=== PATIENT | female | born 1995 | race Caucasian/White ===

== ENCOUNTER 2025-03-16 12:24 | Outpatient (AMB) | payer OTHER, SELFPAY ==
--- NOTE | 2025-03-16 12:37 | MHC.PC.OV ---
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 History of Present Illness The patient is a 29-year-old female presenting with migraines and heart palpitations. She has a significant history of migraines, primarily occurring around her menstrual cycle, lasting about four to five days, and localized to the occipital region. She denies any associated blurred vision, nausea, or vomiting. She was previously advised to undergo an MRI and consult a neurologist but was unable to follow through due to relocating to a different state. The patient also reports experiencing heart palpitations, which have been present for some time and tend to occur more frequently during periods of stress. She is aware of the need to seek emergency care if symptoms worsen significantly. Additionally, the patient has a history of dyslipidemia and reports intermittent lower extrem edema, although no edema was observed during the current examination. Social History Health Maintenance Review of Systems - Neurological: Reports migraines localized to the occipital region, denies blurred vision, nausea, or vomiting. - Cardiovascular: Reports heart palpitations, denies chest pain or syncope. - Musculoskeletal: Reports intermittent sacral edema, denies current edema. Physical Exam General: Cooperative, healthy appearing, comfortable, no acute distress and well developed Orientation: Patient oriented x3 Limitations: No limitations Head: Normal to inspection Ears: Hearing grossly normal bilaterally Nose: Normal external nose present Face and sinus: Normal facial exam Eyes: Appearance normal, both eyes and all related structures Neck: Normal visual inspection and Yes full ROM Respiratory: Normal respiratory effort and able to speak in complete sentences. Clear to auscultation bilaterally Cardiovascular: Regular rate and rhythm. Normal S1 and S2 GI: Normal to inspection. Soft to palpation and nontender Skin: No rashes or lesions noted Neuro: CN2 through 12 intact, negative arm pull test, fingertip to thumb test was neg, heel to guerrero was neg negative Romberg Extremities: Normal to inspection Results Plan Patient was informed and verbally consented to the use of an ambient scribe for clinic note documentation during this visit. 1. Migraine The patient will be referred to a neurologist for further evaluation and management of her migraines. An MRI of the brain will be ordered to rule out any underlying structural abnormalities. Magnesium supplementation at night and vitamin B2 in the morning have been recommended as part of her management plan. 2. Heart Palpitations An EKG and Holter monitor will be conducted to assess the heart palpitations. The patient is advised to seek emergency care if symptoms worsen significantly. 3. Dyslipidemia Laboratory tests including lipid profile, thyroid function tests, CBC, urinalysis, and CMP will be conducted to evaluate her dyslipidemia. Discussion Notes I discussed with the patient the plan to refer her to a neurologist for her migraines and the need for an MRI to rule out any structural issues. We also talked about starting magnesium and vitamin B2 supplementation. For her heart palpitations, I explained the importance of an EKG and Holter monitor, and advised her to seek emergency care if symptoms worsen. We will conduct a comprehensive lab workup to assess her dyslipidemia. Patient Instructions - Take magnesium at night and vitamin D2 in the morning as directed. - Follow up with the neurologist as referred. - Complete the MRI as scheduled. - Undergo EKG and Holter monitor testing as planned. - Seek emergency care if heart palpitations worsen. - Complete lab tests for dyslipidemia evaluation. [facility] Social History Housing: House Patient Tobacco Use Status: Never used Tobacco e-Cigarette/Vaping Use: Never Used service: No Current occupational status: employed Questionnaire PHQ-9 Over the last 2 weeks, how often have you been bothered by any of the following problems? 1. Little interest or pleasure in doing things: not at all 2. Feeling down, depressed, or hopeless: not at all 3. Trouble falling or staying asleep, or sleeping too much: several days 4. Feeling tired or having little energy: several days 5. Poor appetite or overeating: not at all 6. Feeling bad about yourself - or that you are a failure or have let yourself or your family down: not at all 7. Trouble concentrating on things, such as reading the newspaper or watching television: not at all 8. Moving or speaking so slowly that other people could have noticed. Or the opposite - being so fidgety or restless that you have been moving around a lot more than usual: not at all 9. Thoughts that you would be better off or of hurting yourself in some way: not at all Total score: 2 Depression Screening Interpretation: Negative Depression Screening Done: Yes 30856 - PHQ-9 Billing: Yes Source: Developed by Drs. Harsh Harrington, Nery Felton, Dwight Colunga and colleagues, with an educational denise from [employer]. Thrive Questionnaire Date Thrive assessed: 03/16/25 I am a: Patient What is your living situation today?: I have a steady place to live Within the past 12 months, did the food you bought not last and you didn't have the money to get more?: Never true Within the past 12 months, did you worry whether your food would run out before you got money to buy more?: Often true Do you have trouble paying for medicines?: No Do you have trouble getting transportation to medical appointments?: No Do you have trouble paying your heating and electricity bill?: No Do you have trouble taking care of your child, family member or friend?: No Do you have trouble with day-to-day activities such as bathing, preparing meals, shopping, managing finances, etc.?: No Are you currently unemployed and looking for a job?: No Are you interested in more education?: No Please select the resources that you would like help with: None Currently or been in a relationship where the following occur: No concerns reported THRIVE Score: 1 AUDIT C Alcohol Use Questionnaire (AUDIT-C) 1. How often do you have a drink containing alcohol?: Never 3. How often do you have six or more drinks on one occasion?: Never Total Score: 0 Score Reviewed/Action Taken: Yes RAY-7 AMB Questionnaire RAY-7 Date RYA - 7 assessed: 03/16/25 Feeling nervous, anxious, or on edge: 3 = Nearly every day Not being able to stop or control worryin = More than half the days Worrying too much about different things: 1 = Several days Trouble relaxin = Nearly every day Being so restless that it is hard to sit still: 0 = Not at all Becoming easily annoyed or irritable: 0 = Not at all Feeling afraid as if something awful might happen: 1 = Several days Total RAY-7 score (0-4 normal; 5-9 mild; 10-14 moderate; 15-21 severe): 10 Source: Developed by Drs. Harsh Harrington, Nery Felton, Dwight Colunga and colleagues, with an educational denise from [employer]. RAY-7 Assessment Billing RAY-7 Assessment Tool: RAY-7 Assessment 03970 (has a therapist, denies any si or hi) Physical exam (Primary Care) Vital Signs: Last Vital Signs Temp 97.9 F 03/16/25 12:39 Pulse 63 03/16/25 12:39 Resp 16 03/16/25 12:39 BP 102/68 03/16/25 12:39 Pulse Ox 98 03/16/25 12:39 Oxygen Delivery Method Room Air 03/16/25 12:39 BMI result Body Mass Index 22.1 Tobacco/Smoking Status: Tobacco use Status Tobacco use date assessed 03/16/25 03/16/25 12:44 Patient Tobacco Use Status Never used Tobacco 03/16/25 12:44 e-Cigarette/Vaping Use Never Used 03/16/25 12:44 PHQ-9: PHQ-9 Score PHQ-9: Total score 2 03/16/25 13:11 Depression Screening Interpretation: Negative Thrive Assessment: Date of Thrive Assessment Date Thrive assessed 03/16/25 03/16/25 12:38 Currently or been in a relationship where the following occur: No concerns reported Coding Level of Care Code New Pt Level 3 (20995) Diagnoses Family history of brain tumor Z84.89 Migraines G43.909 Palpitations R00.2 Dyslipidemia E78.5 Additional Codes PHQ-9 - 45008 - PHQ-9 Billing: Yes ([id number]) RAY-7 Assessment Billing - RAY-7 Assessment Tool: RAY-7 Assessment 07432 ([id number]) Assessment & Plan Assessment & Plan (1) Family history of brain tumor: Code(s): Z84.89 - Family history of other specified conditions Category: Medical (2) Migraines: Code(s): G43.909 - Migraine, unspecified, not intractable, without status migrainosus Category: Medical (3) Palpitations: Code(s): R00.2 - Palpitations Category: Medical (4) Dyslipidemia: Code(s): E78.5 - Hyperlipidemia, unspecified Category: Medical Plan . Orders: Orders MR head/brain wo con Today G43.909 - Migraine, unspecified, not intractable, without status migrainosus, Z84.89 - Family history of other specified conditions ECG 3 day holter monitor Today R00.2 - Palpitations AMB EKG-In Office Today R00.2 - Palpitations TSH reflex Free T4 Today R00.2 - Palpitations UA CC w/rflx Micro + Cult Today R00.2 - Palpitations Complete Blood Count Auto Diff Today R00.2 - Palpitations Comprehensive [place]. Panel Fast Today R00.2 - Palpitations Lipid Panel Today R00.2 - Palpitations Referrals Neurology Referral G43.909 - Migraine, unspecified, not intractable, without status migrainosus
[2025-03-16 12:39] VITALS: BP 102/68; PULSE 63; RESP 16; TEMP 36.6; O2SAT 98; BMI 22.1
--- OUTSIDE RECORDS SUMMARY | 2025-03-16 13:35 | XMS_ITS | Clinical Summary ---
Author Organization [facility] Address [address] [place] [id number] Phone Care Team Providers Care Nail Machine Operator Name Role Phone Pcp, Unknown Primary Care Provider Unavailabl e Allergies Active Allergy Reactions Criticality Noted Date Comments Gluten Protein 09/26/2023 Milk 11/08/2022 lactose intolerance Medications loratadine (CLARITIN) 10 mg tablet Take 1 tablet (10 mg total) by mouth daily. 20 tablet 8 Active multivit with minerals/lutein (MULTIVITAMIN 50 PLUS ORAL) Daily, 0 Refills, Maintenance, 02/22/22 14:23:00 EDT, Partial fill upon patient request if the prescription is for a schedule II opioid drug. 2 Active levonorgestreL (LILETTA) 20.4 mcg/24 hrs (8 yrs) 52 mg IUD 52 mg. 4 Active propranoloL (INDERAL) 10 MG immediate release tablet 4 Active Active Problems No known active problems Family History Medical History Relation Comments Cancer Maternal Grandfather Osteoporosis Mother Relation Status Comments Father Alive Maternal Grandfather Mother Alive Social History Tobacco Use Types Packs/Day Years Used Date Smoking Tobacco: Never Smokeless Tobacco: Never Alcohol Use Standard Drinks/Week Comments Yes 0 (1 standard drink = 0.6 oz pur e alcohol) rarely Education Answer Date Recorded Are you interested in more education? Not on debra e 10/12/2022 Are you concerned about learning? Not on file 10/12/2022 No 10/12/2022 No 10/12/2022 Digital Access Answer Date Recorded No 11/08/2022 No 11/08/2022 No 11/08/2022 Reliable internet access at home? Not on file 11/08/2022 Device with a working camera? 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 on file Not on file Not on debra e Last Filed Vital Signs Vital Sign Reading Time Taken Comments Blood Pressure 125/80 09/26/2023 6:44 PM EDT Pulse 86 09/26/2023 6:44 PM EDT Temperature 36.9 C (98.5 F) 09/26/2023 6:44 PM EDT Respiratory Rate 16 09/26/2023 6:44 PM EDT Oxygen Saturation 97% 09/26/2023 6:44 PM EDT Inhaled Oxygen Concentration - - Weight 62.6 kg (138 lb) 10/22/2020 2:38 PM EDT Height 167.6 cm (5' 6 ) 10/22/2020 2:38 PM EDT Body Mass Index 22.27 10/22/2020 2:38 PM EDT Plan of Treatment Upcoming Encounters Date Type Department Care Team (Late st Contact Info) Description 04/23/2025 8:15 AM EST Office Visit [facility] [address] [place] [id number] Unknown, Unknown, Megha Juarez, PA [address] [place] [id number] Health Maintenance Due Date Last Done Comments Adult Td,Tdap Booster 1995 DEPRESSION SCREENING 2007 HEPATITIS C SCREENING 2013 HIV ONE-TIME SCREENING (18-6 5 YEARS) 2013 PAP SMEAR 2016 INFLUENZA VACCINE (#1) 2025 COVID-19 VACCINE (2 - 2024-2 6 season) 2025 05/10/2021 SMOKING STATUS SCREENING (On ce After 26 Yrs) Completed 11/08/2022 HEPATITIS A VACCINES Aged Out No long er eligible based on patient's age to complete this topic HIB VACCINES Aged Out No longer eligi ble based on patient's age to complete this topic MENINGOCOCCAL VACCINES (ACWY) Aged Out No longer eligible based on patient's age to complete this topic MENINGOCOCCAL VACCINES (B) Aged Out N o longer eligible based on patient's age to complete this topic PNEUMOCOCCAL VACCINES (0-49 years) Aged Out No longer eligible based on patient's age to complete this topic Medical Devices Not on file Insurance CIG PPO CIGNA PPO CIGNA PPO CIGNA PPO CIGNA PPO CIGNA PPO Care Teams Nail Machine Operator Relationship Specialty Start Date End Date Pcp, Unknown PCP - General 10/22/20 Additional Source Comments The information contained in this document represents components of the legal health record. It is not the complete legal health record.[facility]
--- OUTSIDE RECORDS SUMMARY | 2025-03-16 13:35 | XMS_ITS ---
Author Name [facility] Organization Unknown History of Medication Use Medication Directions Dispensed Refills Start Date End Date Stat fluconazole (diFLUcan) 150 MG tablet Take 1 tablet (150 mg total) by mouth every third day (72 hrs). Take 1 tab PO on day 1. If symptoms persist, may take 1 tab PO again three days later. 01/12/2023 active Problems Problem Status Onset Date Problem Type Date of Resoluti on Source Vaginal sore active EncounterDiagnosisAct [facility] Immunizations Vaccine Date Source Lot Number Status Covid-19 MRNA Vaccine - Pfiz er 12+ (Purple Cap) 10/11/2020 [facility] [id number] completed Covid-19 MRNA Vaccine - Pfiz er 12+ (Purple Cap) 09/20/2020 [facility] [id number] completed Encounters Encounter Type Encounter Reason Primary Diagnosis Location Date Ambulatory Other specified noninflammatory disorders of vagina [facility] 01/12/2023 Care Team Organization Name Specialty Phone Email Start Date End Da te [facility] NO PCP Primary Care 01/12/2023 01/12/2023 [facility] PCP,No Primary Care 01/12/2023
--- OUTSIDE RECORDS SUMMARY | 2025-03-16 13:35 | XMS_ITS | Patient Health Record ---
Author Organization [facility], Address [address] [place] [address] Support Name Relationship Address Phone Richard Blevins Guarantor Unknown [phone] Reason For Referral No Information Plan Of Treatment No Information Insurance Providers Payer Name Payer Address Payer Phone Subscriber Number Group Number Insured Name Patient Relationship to Insured Coverage Start Date Coverage End Date [facility] [address] [place] [address] [phone] [id number] Richard Blevins Self - patient is the insured
--- OUTSIDE RECORDS SUMMARY | 2025-03-16 13:35 | XMS_ITS | Clinical Summary ---
Author Organization [facility] Address [address] [place] [address] Care Team Providers Care Public Finance Specialist Name Role Phone Pcp, No Primary Care Provider Unavailabl e Allergies No known active allergies Medications fluconazole (diFLUcan) 150 MG tabletIndicatio ns:Vaginal sore Take 1 tablet (150 mg total) by mouth every third day (72 hrs). Take 1 tab PO on day 1. If symptoms persist, may take 1 tab PO again three days later. 2 tablet 01/12/2023 Active Active Problems No known active problems Immunizations Immunization Administration Dates Next Due Covid-19 MRNA Vaccine - Pfizer 12+ (Purple Cap) 10/11/2020,09/20/2020 Social History Tobacco Use Types Packs/Day Years Used Date Smoking Tobacco: Never Smokeless Tobacco: Never Comments Unknown Sex and Gender Information Value Date Recorded Sex Assigned at Not on file Legal Sex Female 9:33 AM EST Gender Identity Female 09/19/2020 4:30 PM EDT Sexual Orientation Heterosexual (straight) 09/19 4:30 PM EDT Last Filed Vital Signs Vital Sign Reading Time Taken Comments Blood Pressure 117/78 01/12/2023 1:54 PM EDT Pulse 73 01/12/2023 1:54 PM EDT Temperature 36.6 C (97.9 F) 01/12/2023 1:54 PM EDT Respiratory Rate - - Oxygen Saturation 98% 01/12/2023 1:54 PM EDT Inhaled Oxygen Concentration - - Weight 59 kg (130 lb) 08/12/2020 2:47 PM EST Height 167.6 cm (5' 6 ) 08/12/2020 2:47 PM EST Body Mass Index 20.98 08/12/2020 2:47 PM EST Plan of Treatment Health Maintenance Due Date Last Done Comments Hepatitis C Virus Screening 1995 HIV Screening 2008 DTaP/Tdap/Td Vaccines (1 - Tdap) 2014 Hepatitis B Vaccines (1 of 3 - 19+ 3-dose series) 2014 Pap Smear (Ages 21-65) 2016 Influenza Vaccine 01/15/2025 COVID-19 Vaccine (3 - 2024-2 6 season) 2025 10/11/2020, 09/20/2020 HPV Vaccines (No Doses Required) Completed Pneumococcal Vaccine: Pediatric (0-5 Years) and At-Risk Patients (6 to 49 Years) Aged Out No longer eligible b ased on patient's age to complete this topic Insurance [employer] HMO/POS Care Teams Public Finance Specialist Relationship Specialty Start Date End Date Pcp, No PCP - General General Medicine 08/12/20
--- OUTSIDE RECORDS SUMMARY | 2025-03-16 13:35 | XMS_ITS | Data Portability ---
Author Organization [facility] Surgeons [facility] Address [address] [place] [address] Assessment Encounter Date Assessment Date Assessment LastModified by Organization Details LastModified Time 11/27/2024 11/27/2024 29-year-old female with tenderness to palpation at the C7-T1 junction possibly due to some mobilization with pressure at the facet joints. No red flags. No role for aggressive care. Offered a trigger point injection but she deferred. Natural history reviewed and questions answered. Follow-up to be arranged. 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 [email or web address] Not available 11/27/2024 12:21:50 Plan of Treatment Reminders Order Date Submit Date Provider Last Modified By Organization Details Last Modified Time Details Appointments None recorded. Lab None recorded. Referral None recorded. Procedures None recorded. Surgeries None recorded. Imaging XR, cervical spine, 2 or 3 view - 319 cervical 2v 2024 025 [facility] Office, [address] [facility], [facility] [address], [place], [address], 5 15:16:16 Medication Orders None recorded. Patient TargetsNo targets recorded. Patient InstructionsNo instructions recorded. Reason for Referral None Reported. Results Created Date Observation Date Name Description Value Unit Range Abnormal Flag Note LastModifiedBy Organization Detail LastModifiedTime 11/28/1911/27/2024 XR, cervi azam spine , 2 or 3 view http:/ [email or web address] ?Encry pted=s hAaTro YD8dLq bEUv6g %2BXZw aYqtaq 0bqfl% 2Fg9IQ a4ajBk vP9nXo QUaueC m3YtLR FvZlgJ JJ8mAn HZtai3 [id number] AC0Kla HmEUaG jKiQtr MwF INTERFACE [facility] Office [address] [facility] [address], [place], [address], 11/27/2024 11:00:51 11/28/19 25 11/27/2024 XR, cervi azam spine , 2 or 3 view http:/ [email or web address] ?Encry pted=s hAaTro YD8dLq bEUv6g %2BXZw aYqtaq 0bqfl% 2Fg9IQ a4ajBk vP9nXo QUaueC m3YtLR FvZlgJ JJ8mAn HZtai3 [id number] AC0Kla HmEUaG jKiQtr MwF INTERFACE [facility] [address] [facility] [address], [place], [address], 11/27/2024 11:00:53 Result Notes Documentation Provider Name and Address Organization Details Recorded Time Xr, Cervical Spine, 2 Or 3 View : [email or web address] Encrypted=ayCkUcwMS8mUclS Uv6g%0LTFbzTzcge0guzg%2Fg 0MVt4xyDeiM5zHtJQwgcPa2Ol HGFxThlTWI7wMyIQzmc48s992 1LO6AhgTsAJnVuOqYfvCaC Not Available [facility] 11/27/2024 11:00: 52 Xr, Cervical Spine, 2 Or 3 View : [email or web address] Encrypted=huYrZvsDX9oMrnW Uv6g%5DCAhjJself4imux%2Fg 4NSc1mhOrpS6pZbFDvemDk3Sa OFTqXnzFRD9dUkIChin27k159 9MF9NeuUwZOtJwXrUhaCkK Not Available [facility] 11/27/2024 11:00: 53 Medical Equipment None Reported. Allergies No known drug allergies Medications Name Sig Start Date Stop Date Status Note LastModified by Organization Details LastModified Time sumatriptan 100 mg tablet TAKE 1 TABLET (100 MG TOTAL) BY MOUTH ONCE NEEDED FOR HEADACHE FOR MIGRAINE 11/27 completed Not Available Not Available Not Available dexamethaso ne 6 mg tablet TAKE 1 TABLET ONCE 11/27 completed Not Available Not Available Not Available doxycycline hyclate 50 mg capsule TAKE 1 CAPSULE BY MOUTH TWICE A DAY 11/27 completed Not Available Not Available Not Available topiramate 25 mg tablet TAKE 1 TABLET BY MOUTH AT BEDTIME FOR 1 WEEK THEN INCREASE TO 2 TABLETS DAILY 11/27 completed Not Available Not Available Not Available erythromyci n 5 mg/gram (0.5 %) eye ointment APPLY A HALF-INCH RIBBON TO THE AFFECTED AREA EVERY 6 HOURS WHILE AWAKE 11/27 completed Not Available Not Available Not Available tacrolimus 0.1 % topical ointment APPLY TO AFFECTED AREA TWICE A DAY NEEDED FOR FLARES 11/27 completed Not Available Not Available Not Available tobramycin 0.3 % eye drops APPLY ONE DROP TO EACH EYE THREE TIMES A DAY FOR UP TO 10 DAYS NEEDED. 11/27 completed Not Available Not Available Not Available metronidazo le 0.75 % topical cream APPLY THIN LAYER TO AFFECTED AREAS ON FACE TWICE DAILY. 11/27 completed Not Available Not Available Not Available ammonium lactate 12 % topical cream APPLY TO AFFECTED AREAS ON ARMS AND LEGS TWICE DAILY NEEDED. 11/27 completed Not Available Not Available Not Available epinephrine 0.3 mg/0.3 mL injection, auto-inject or USE DIRECTED FOR ANAPHYLAX IS THEN CALL 911 11/27 completed Not Available Not Available Not Available azelaic acid 15 % topical gel APPLY TWICE DAILY TO ROSACEA-P OSIRIS AREAS. 11/27 completed Not Available Not Available Not Available Paxlovid 300 mg (150 mg x 2)-100 mg tablets in a dose pack 3 TABLETS TWICE A DAY FOR 5 DAYS 11/27 completed Not Available Not Available Not Available Vitals Date Recorded Body height Body mass index (BMI) Body weight Provider Name and Address Organization Details Last Updated DateTime 11/27/2024 170.18 cm 21.9 kg/m2 69562.93 g Susan mora [place] - [facility] 11/27/2024 10:57:18 Social History None recorded. Functional Status None recorded. Mental Status None recorded. Family History Nothing Reported. Medical History No medical history recorded. Gynecological HistoryNo gynecological history recorded. Obstetrics History GPAL:G 0 P 0 0 0 0 Past Encounters Encounter ID Performer Location Encounter Start Date Encounter Closed Date Diagnosis/Indication Diagnosis SNOMED-CT Code Diagnosis ICD10 Code Diagnosis IMO Codes Diagnosis Note [id number] Harsh Huitron MD [facility] [place] [address] [place] [address] 11/27/2024 10:19:33 12/09/2024 15:16:16 Neck pain 96580061 M54.2 63591 Health Concerns Section Related Observation LastModified by Organization Detai ls LastModified Time None Recorded Concern Status LastModified by Organization Details LastModified Time None Recorded Advance Directives Directive None Recorded Payers Insurance Date Sequence Insurance Name Policy Number Policy Gibbs Covered Member ID Gibbs Member ID Guarantor Name 12/09/2024 1 JARETT (PPO) [id number] Richard Blevins [id number] 1 Richard Blevins Notes Date Note Type Note Provider Name and Address Organization Details Recorded Time 11/27/2024 text/html ROS as noted in the HPI HPI: 29-year-old female presents with focal neck pain cervicothoracic junction. Present chronically. Has multiple complaints including migraine headaches and diffuse arthralgias. No injuries described. No radiating arm pain leg pain numbness or weakness. No bowel or bladder complaints described. WORK STATUS: Working PFMSH and ROS has been reviewed, updated, and is located in the patient's chart RADIOGRAPHS: Cervical spine radiographs are normal studies other than some arthrosis of the facet joints C7-T1. PHYSICAL EXAMINATION: Harsh Huitron MD [address], [place], [address], [facility] 11/27/2024 12:22:17 OBGyn Episode No OBEpisode recorded.
== END 2025-03-16 15:53 | disposition home or self-care (01) ==
LOC: HO.HMCC 12:24
PROVIDERS: PCP Family Medicine; Visit Provider Nurse Practitioner Family
DX: Z84.89 Family history of other specified conditions (principal); G43.909 Migraine, unspecified, not intractable, without status migrainosus; R00.2 Palpitations; E78.5 Hyperlipidemia, unspecified

== ENCOUNTER → 2025-03-16 12:24 | Outpatient (BNVA) | payer OTHER, SELFPAY | PROVIDERS: PCP Family Medicine; Visit Provider Nurse Practitioner Family | DX: R00.2 Palpitations (principal); G43.909 Migraine, unspecified, not intractable, without status migrainosus; E78.5 Hyperlipidemia, unspecified; Z84.89 Family history of other specified conditions | CPT/HCPCS: 96127 ==

== ENCOUNTER → 2025-04-07 08:15 | Outpatient (REF) | payer OTHER, SELFPAY ==
--- NOTE | 2025-04-07 08:23 | HM_ITS ---
* Total monitoring time 3 days. * Underlying rhythm is sinus with an average rate of 67/Min. * Rare supraventricular ectopy. * Rare ventricular ectopy. * No significant pauses or high-grade AV blocks. * Chest discomfort, palpitations mostly associated with sinus rhythm and sinus tachycardia. On one occasion with isolated supraventricular ectopy and ventricular ectopy. MTDD
--- OUTSIDE RECORDS SUMMARY | 2025-04-07 08:23 | XMS_ITS | Clinical Summary ---
Author Organization [facility] Address [address] [place] [address] Care Team Providers Care Freight Loader Name Role Phone Pcp, No Primary Care [...] this topic Insurance [employer] HMO/POS Care Teams Freight Loader Relationship Specialty Start Date End Date Pcp, No PCP - General General Medicine 08/12/20
--- OUTSIDE RECORDS SUMMARY | 2025-04-07 08:23 | XMS_ITS | Patient Health Record ---
Author Organization [facility], Address [address] [place] [address] Support Name Relationship Address Phone Richard Blevins Guarantor Unknown [phone] Reason For Referral No Information Plan Of Treatment No Information Insurance Providers Payer Name Payer Address Payer Phone Subscriber Number Group Number Insured Name Patient Relationship to Insured Coverage Start Date Coverage End Date [facility] [address] [place] [address] [id number] Richard Blevins Self - patient is the insured
--- OUTSIDE RECORDS SUMMARY | 2025-04-07 08:23 | XMS_ITS | Clinical Summary ---
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 Not on file Not [...] Description 04/23/2025 8:15 AM EST Office Visit [facility] [address] [place] [address] Unknown, Unknown, Megha Juarez PAChelC [address] [place] [address] [email or web address] Health Maintenance Due Date Last Done Comments Adult Td,Tdap Booster 1995 DEPRESSION SCREENING 2007 HEPATITIS C SCREENING 2013 HIV ONE-TIME SCREENING (18-6 5 YEARS) 2013 PAP SMEAR 2016 INFLUENZA VACCINE (#1) 2025 COVID-19 VACCINE (2 2024-2 6 season) 2025 05/10/2021 SMOKING STATUS [...] topic Medical Devices Not on file Insurance CIGNA PPO CIGNA PPO CIGNA PPO CIGNA PPO CIGNA PPO CIGNA PPO Care Teams Quality Improvement Coordinator Relationship Specialty Start Date End Date Pcp, Unknown PCP - General 10/22/20 Additional Source Comments The information contained in this document represents components of the legal health record. It is not the complete legal health record.[facility]
--- OUTSIDE RECORDS SUMMARY | 2025-04-07 08:23 | XMS_ITS | Data Portability ---
Author Organization [facility] Surgeons [facility], [facility] Address [address] [place] [address] Assessment Encounter Date Assessment Date Assessment LastModified [...] view - 319 cervical 2v 2024 025 [facility] [place] Office, [address] [facility], [facility] [address], [place], [address], 5 15:16:16 Medication Orders None recorded. Patient [...] a4ajBk vP9nXo QUaueC m3YtLR FvZlgJ JJ8mAn HZtai3 [id number] AC0Kla HmEUaG jKiQtr MwF INTERFACE [facility] Office [address] [facility] [address], [place], [address], 11/27/2024 11:00:51 11/28/19 25 11/27/2024 XR, cervi azam spine , 2 or 3 view http:/ [email or web address] ?Encry pted=s hAaTro YD8dLq bEUv6g %2BXZw aYqtaq 0bqfl% 2Fg9IQ a4ajBk vP9nXo QUaueC m3YtLR FvZlgJ JJ8mAn HZtai3 [id number] AC0Kla HmEUaG jKiQtr MwF INTERFACE [facility] [address] [facility] [address], [place], [address], 11/27/2024 11:00:53 Result Notes Documentation Provider Name and Address Organization Details Recorded Time Xr, Cervical Spine, 2 Or 3 View : [email or web address] Encrypted=xnSaTjoYL8pZkuA Uv6g%6HBClyMnznd0hdxy%2Fg 0DWg4hmPhfU6hEaIBeluOp3Bm QABbWloVFH3lVnCWlya16g174 9PR6LimWvNOnKlKtScuOeR Not Available [facility] 11/27/2024 11:00: 52 Xr, Cervical Spine, 2 Or 3 View : [email or web address] Encrypted=whCeYfcCK7aZkaM Uv6g%1PEGydNfajc5fdco%2Fg 5XFg2rlXakQ8lDwJWteiXx9Ik ZAGeQycQBH7yUtXBndh84x867 6FK7YdzBiYAqRiKtHnpHhC Not Available [facility] 11/27/2024 11:00: 53 Medical Equipment [...] Updated DateTime 11/27/2024 170.18 cm 21.9 kg/m2 04302.93 g Susan mora [place] - [place] [facility] 11/27/2024 10:57:18 Social History None recorded. Functional Status None recorded. Mental Status None recorded. Family History Nothing Reported. Medical History No medical history recorded. Gynecological HistoryNo gynecological history recorded. Obstetrics History GPAL:G 0 P 0 0 0 0 Past Encounters Encounter ID Performer Location Encounter Start Date Encounter Closed Date Diagnosis/Indication Diagnosis SNOMED-CT Code Diagnosis ICD10 Code Diagnosis IMO Codes Diagnosis Note [id number] Harsh Huitron MD [facility] [place] [address] [place] [address] 11/27/2024 10:19:33 12/09/2024 15:16:16 Neck pain 50673037 M54.2 [address]8893 Health Concerns Section Related Observation LastModified by Organization Detai ls LastModified Time None Recorded Concern Status LastModified by Organization Details LastModified Time None Recorded Advance Directives Directive None Recorded Payers Insurance Date Sequence Insurance Name Policy Number Policy Gibbs Covered Member ID Gibbs Member ID Guarantor Name 12/09/2024 1 JARETT (PPO) [id number] Richard Blevins [id number] 1 Richard Blevins Notes Date Note Type [...] Huitron MD [address], [place], [address], [facility] 11/27/2024 12:22:17 OBGyn Episode No OBEpisode recorded.
[2025-04-07 08:29] LABS: MANUAL DIFF FLAG NO
[2025-04-07 08:54] LABS: Hematocrit 45.2 % (37.0-47.0); Hemoglobin 14.6 g/dl (12.0-16.0); Imm Gran Abs Auto 0.01 X10*3/uL (0.00-0.03); Imm Gran Pct Auto 0.2 % (0.0-0.4); Lymphocytes Absolute Auto 1.6 X10*3/uL (1.2-4.9); Mean Corpuscular HGB Conc 32.3 g/dl (31.0-35.0); Mean Corpuscular Hemoglobin 29.8 pg (27.0-33.0); Mean Corpuscular Volume 92.2 fL (80.0-98.0); NRBC Abs Auto 0.000 X10*3/uL (0.0-0.012); NRBC Pct Auto 0.0 /100WBC (0.0-0.2); Platelet Count 254 X10*3/uL (160-400); Red Blood Count 4.90 X10*6/uL (4.20-5.50); White Blood Count 6.1 X10*3/uL (4.8-10.8)
[2025-04-07 09:45] LABS: Alanine Aminotransferase 12 U/L (0-31); Albumin Level 4.6 g/dL (3.5-5.0); Alkaline Phosphatase 47 U/L (39-117); Anion Gap 10 (12-20); Aspartate Amino Transferase 20 U/L (5-31); Blood Urea Nitrogen 17 mg/dL (9-16); Calcium 9.3 mg/dL (8.4-10.2); Carbon Dioxide 25 mmol/L (22-29); Chloride 110 mmol/L (96-108); Cholesterol 193 mg/dL (<200); Estimated Glomerular Filt Rate > 60; HDL Cholesterol 59 mg/dL (>40); Potassium 4.6 mmol/L (3.3-5.1); Sodium 140 mmol/L (135-145); Total Protein 7.3 g/dL (6.5-8.0); Triglycerides 54 mg/dL (<150)
[2025-04-07 09:48] LABS: Appearance Urine Clear; Glucose Urine UA Negative (Negative); PH 6.5 (5.0-9.0); Specific Gravity - Urine 1.025 (1.005-1.025)
== END ==
LOC: HO.CARD 08:15
PROVIDERS: PCP Nurse Practitioner Family; Visit Provider Nurse Practitioner Family
DX: R00.2 Palpitations (principal); Z13.6 Encounter for screening for cardiovascular disorders
CPT/HCPCS: 36415; 80053; 80061; 81003; 84443; 85025; 93242

== ENCOUNTER → 2025-04-07 08:23 | Outpatient (BNV) | payer OTHER, SELFPAY | PROVIDERS: PCP Nurse Practitioner Family; Visit Provider Internal Medicine | DX: I49.3 Ventricular premature depolarization (principal); I47.10 Supraventricular tachycardia, unspecified | CPT/HCPCS: 93244 ==

== ENCOUNTER 2025-04-21 06:42 | Outpatient (AMB) | payer OTHER, SELFPAY ==
--- OUTSIDE RECORDS SUMMARY | 2025-04-21 06:45 | XMS_ITS | Patient Health Record ---
Author Organization [facility], Address [address] [place] [address] Support Name Relationship Address Phone Richard Blevins Guarantor Unknown [phone] Reason For Referral No Information Plan Of Treatment No Information Insurance Providers Payer Name Payer Address Payer Phone Subscriber Number Group Number Insured Name Patient Relationship to Insured Coverage Start Date Coverage End Date [facility] [address] [place] [address] [id number] Richard Blevins Self - patient is the insured
--- OUTSIDE RECORDS SUMMARY | 2025-04-21 06:45 | XMS_ITS | Clinical Summary ---
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 Not on file Not [...] Description 04/23/2025 8:15 AM EST Office Visit [facility] [address] [place] [address] Unknown, Unknown, Megha Juarez PAChelC [address] [place] [address] [email or web address] Health Maintenance Due Date Last Done Comments [...] on file Insurance CIGNA PPO CIGNA PPO Member Subscriber Plan / Payer ( fective 2023-Present) Name:Richard Nguyen Relation to Subscriber:Self Name:Richard Nguyen Payer ID:[id number] ([facility]) Type:PPO Address: [facility] [id number] [place] [address] CIGNA PPO Member Subscriber Plan / Payer (Ef fective 2023-Present) Name:Richard Nguyen Relation to Subscriber:Self Name:Richard Nguyen Payer ID:[id number] ([facility]) Type:PPO Address: [facility] [id number] [place] [address] CIGNA PPO Member Subscriber Plan / Payer ( fective 2023-) Name:Richard Nguyen Relation to Subscriber:Self Name:Richard Nguyen Payer ID:[id number] ([facility]) Type:PPO Address: [id number] [place] [address] CIGNA PPO CIGNA PPO Care Teams Media Center Specialist Relationship Specialty Start Date End Date Pcp, Unknown PCP - General 10/22/20 Additional Source Comments The information contained in this document represents components of the legal health record. It is not the complete legal health record.[facility]
--- OUTSIDE RECORDS SUMMARY | 2025-04-21 06:45 | XMS_ITS | Data Portability ---
Author Organization [facility], [facility] Address [address] [place] [address] Assessment Encounter Date Assessment Date Assessment LastModified [...] view - 319 cervical 2v 2024 025 [facility] Office, [address] [facility], [facility] [address], [place], [address], 5 15:16:16 Medication Orders None recorded. Patient [...] a4ajBk vP9nXo QUaueC m3YtLR FvZlgJ JJ8mAn HZtai3 [id number] AC0Kla HmEUaG jKiQtr MwF INTERFACE [facility] Office [address] [facility] [address], [place], [address], 11/27/2024 11:00:51 11/28/19 25 11/27/2024 XR, cervi azam spine , 2 or 3 view http:/ [email or web address] ?Encry pted=s hAaTro YD8dLq bEUv6g %2BXZw aYqtaq 0bqfl% 2Fg9IQ a4ajBk vP9nXo QUaueC m3YtLR FvZlgJ JJ8mAn HZtai3 [id number] AC0Kla HmEUaG jKiQtr MwF INTERFACE [facility] [address] [facility] [address], [place], [address], 11/27/2024 11:00:53 Result Notes Documentation Provider Name and Address Organization Details Recorded Time Xr, Cervical Spine, 2 Or 3 View : [email or web address] Encrypted=qcEoBhlOJ6qAgxJ Uv6g%5TGNmdTjhtv5jwcy%2Fg 7RGe3xyNjfH1aZzJPzcpBa6Bs ELSpFxtFAC4hRyNAdob33o335 0GI7HlsChPPlRgRgCelWlV Not Available [facility] 11/27/2024 11:00: 52 Xr, Cervical Spine, 2 Or 3 View : [email or web address] Encrypted=hqOyRccEB3wGpoL Uv6g%5TIExvJyzwp4qevt%2Fg 5TPm1ctZzgC3bCiKQuwlBu6Tx KWLuTrnDOD4fNcJMrnq62j600 2MD3ItxJxAWxDmSyYxwKkM Not Available [facility] 11/27/2024 11:00: 53 Medical Equipment None Reported. [...] Updated DateTime 11/27/2024 170.18 cm 21.9 kg/m2 42670.93 g Susan mora [place] - [place] [facility] 11/27/2024 10:57:18 Social History None recorded. Functional Status None recorded. Mental Status None recorded. Family History Nothing Reported. Medical History No medical history recorded. Gynecological HistoryNo gynecological history recorded. Obstetrics History GPAL:G 0 P 0 0 0 0 Past Encounters Encounter ID Performer Location Encounter Start Date Encounter Closed Date Diagnosis/Indication Diagnosis SNOMED-CT Code Diagnosis ICD10 Code Diagnosis IMO Codes Diagnosis Note [id number] Harsh Huitron MD [facility] [place] [address] [place] [address] 11/27/2024 10:19:33 12/09/2024 15:16:16 Neck pain [id number] M54.2 [address] Health Concerns Section Related Observation LastModified by Organization Detai ls LastModified Time None Recorded Concern Status LastModified by Organization Details LastModified Time None Recorded Advance Directives Directive None Recorded Payers Insurance Date Sequence Insurance Name Policy Number Policy Gibbs Covered Member ID Gibbs Member ID Guarantor Name 12/09/2024 1 JARETT (PPO) [id number] Richard Blevins [id number] 1 Richard Blevins Notes Date Note Type [...] Huitron MD [address], [place], [address], [facility] 11/27/2024 12:22:17 OBGyn Episode No OBEpisode recorded.
--- OUTSIDE RECORDS SUMMARY | 2025-04-21 06:45 | XMS_ITS | Clinical Summary ---
Author Organization [facility] Address [address] [place] [address] Care Team Providers Care Lockstitch Collar Setter Name Role Phone Pcp, No Primary Care [...] this topic Insurance A[employer] HMO/POS Care Teams Lockstitch Collar Setter Relationship Specialty Start Date End Date Pcp, No PCP - General General Medicine 08/12/20
--- NOTE | 2025-04-21 07:57 | MHC.PC.OV ---
Intake Visit Reasons: Discuss test results Allergies No Known Allergies Allergy (Verified 03/16/25 12:40) Medication List - Last Reconciled 04/21/25 by LILIAN Carrera No Known Home Meds Tobacco use date assessed: 03/16/25 Dental Screening Dental Screen Date: 03/16/25 HPI Discuss test results HPI Details History of Present Illness The patient is a 30-year-old female presenting for a telehealth follow-up to review Holter monitor results for palpitations. A Holter monitor was performed which revealed sinus rhythm with sinus tachycardia. The patient has a history of anxiety and previously tried propranolol, which she discontinued due to adverse effects including chest pressure. She is described as a fairly active and fit individual. She currently denies any active chest pain or shortness of breath and reports doing well overall. Review of Systems - Cardiovascular: Reports palpitations. Denies chest pain or chest pressure. - Respiratory: Denies shortness of breath. - Psychiatric: Reports a history of anxiety. - Constitutional: Reports doing quite well overall. Plan 1. Palpitations And Sinus Tachycardia The patient's Holter monitor results were reviewed and showed sinus rhythm with sinus tachycardia, which is a benign finding. Given her history of adverse effects with propranolol, including dizziness, nausea, and chest pressure, beta-adrian therapy will be held at this time. The patient understands the benign nature of her results and agrees with holding off on medication. She will follow up in six months for re-evaluation. 2. Anxiety The potential use of medication for anxiety was discussed. Due to a history of intolerable side effects with propranolol, no new medications will be started at this time. The option to start medication in the future remains open if needed. Discussion Notes I discussed the Holter monitor results with the patient, explaining that the findings of sinus rhythm and sinus tachycardia are benign. We reviewed her past experience with propranolol, which she took for anxiety and stopped due to side effects of dizziness, feeling sick, and chest pressure. Based on her previous intolerance to beta-blockers and the benign nature of the Holter results, we mutually agreed to hold off on starting medication at this time. I advised her that we can reconsider medication for either anxiety or palpitations in the future if her symptoms change. A follow-up is scheduled in six months. Patient Instructions - Your heart monitor test showed a normal rhythm with periods of a fast heart rate, which is not dangerous. - We will not start any new medication at this time because you have had side effects like dizziness and feeling sick from similar medicine in the past. - We can discuss starting medication in the future if your symptoms change. - Please schedule a follow-up visit in about six months. REPLACED BY [facility] Social History Housing: House Patient Tobacco Use Status: Never used Tobacco e-Cigarette/Vaping Use: Never Used service: No Current occupational status: employed Questionnaire Thrive Questionnaire Date Thrive assessed: 03/16/25 I am a: Patient What is your living situation today?: I have a steady place to live Within the past 12 months, did the food you bought not last and you didn't have the money to get more?: Never true Within the past 12 months, did you worry whether your food would run out before you got money to buy more?: Often true Do you have trouble paying for medicines?: No Do you have trouble getting transportation to medical appointments?: No Do you have trouble paying your heating and electricity bill?: No Do you have trouble taking care of your child, family member or friend?: No Do you have trouble with day-to-day activities such as bathing, preparing meals, shopping, managing finances, etc.?: No Are you currently unemployed and looking for a job?: No Are you interested in more education?: No Please select the resources that you would like help with: None Currently or been in a relationship where the following occur: No concerns reported THRIVE Score: 1 RAY-7 AMB Questionnaire RAY-7 Date RAY - 7 assessed: 03/16/25 Source: Developed by Drs. Harsh Harrington, Nery Felton, Dwight Colunga and colleagues, with an educational denise from [employer]. Physical exam (Primary Care) Tobacco/Smoking Status: Tobacco use Status Tobacco use date assessed 03/16/25 03/16/25 12:44 Patient Tobacco Use Status Never used Tobacco 03/16/25 12:44 e-Cigarette/Vaping Use Never Used 03/16/25 12:44 Thrive Assessment: Date of Thrive Assessment Date Thrive assessed 03/16/25 03/16/25 12:38 Currently or been in a relationship where the following occur: No concerns reported Telehealth Telehealth Telehealth Platform: [employer] Location of provider rendering services: practice address Location of patient: address on file Patient Identification confirmed using: Name, : Yes Telehealth method: video Patient verbally consented to treatment: Yes Patient verbally consented to billing insurance company: Yes Patient informed of any privacy concerns related to visit: Yes Minutes spent on Phone/Video with Pt.: 13 Coding Level of Care Code Tele Est Pt Level 3 (88437) Diagnoses Palpitations R00.2 Assessment & Plan Assessment & Plan (1) Palpitations: Code(s): R00.2 - Palpitations Category: Medical Plan . Medications: New epinephrine (EpiPen 2-Harpal) for 2 doses 0.3 mg (0.3 mL) IM Q10M PRN 2 ea 1RF anaphylaxis
== END 2025-04-21 08:47 | disposition home or self-care (01) ==
LOC: HO.HMCC 06:42
PROVIDERS: PCP Nurse Practitioner Family; Visit Provider Nurse Practitioner Family
DX: R00.2 Palpitations (principal)

== ENCOUNTER → 2025-04-24 11:31 | Outpatient (BNV) | payer OTHER, SELFPAY | PROVIDERS: PCP Nurse Practitioner Family; Visit Provider Radiology Diagnostic Radiology | DX: G43.909 Migraine, unspecified, not intractable, without status migrainosus (principal) | CPT/HCPCS: 70551 ==

== ENCOUNTER 2025-04-24 11:33 | Outpatient (REF) | payer OTHER, SELFPAY ==
--- NOTE | ~2025-04-24 | MR_ITS ---
EXAMINATION: MR BRAIN WITHOUT CONTRAST CLINICAL INFORMATION: Migraine, unspecified. COMPARISON: None available. TECHNIQUE: MRI of the brain was obtained using routine sequences without contrast. FINDINGS: No restricted diffusion. No acute intracranial hemorrhage, mass effect, midline shift, hydrocephalus or herniation. Devlin-white matter differentiation is normal. Posterior cranial fossa contents demonstrated no signal abnormality or mass effect. Midline structures are normal. Sellar/suprasellar region is normal. Craniocervical junction is intact with normal position of the cerebellar tonsils. Flow-void signal within the main cerebral vessels is normal. MR/MR head/brain wo con IMPRESSION: No acute or structural brain abnormality. Electronically signed by: Deejay Carranza MD 04/26/2025 06:55 AM EST
--- OUTSIDE RECORDS SUMMARY | 2025-04-24 11:36 | XMS_ITS | Clinical Summary ---
Author Organization [facility] Address [address] [place] [phone] Phone Care Team Providers Care News Production Assistant Name Role Phone Jesus Gerardo NP Primary Care Provider + Megha Day PA-C Unavailable [phone] Allergies Active Allergy Reactions Criticality Noted Date [...] Active Active Problems No known active problems Encounters Date Type Department Care Team Description 04/22/2025 Telephone [facility] [address] [place] [address] Megha Day PA-C from Last 3 Months Family History Medical History Relation Comments Cancer [...] 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 [place] [address] PCP - General Nurse Practitioner 04/22/25 Megha Day PA-C [address] [place] [address] [email or web address] Physician Forestry Engineer Physician Forestry Engineer 04/22/25 Additional Source Comments The information contained in this document represents components of the legal health record. It is not the complete legal health record.[facility]
--- OUTSIDE RECORDS SUMMARY | 2025-04-24 11:36 | XMS_ITS | Clinical Summary ---
Author Organization [facility] Address [address] [place] [address] Care Team Providers Care Blackjack Supervisor Name Role Phone Pcp, No Primary Care [...] this topic Insurance [employer] HMO/POS Care Teams Blackjack Supervisor Relationship Specialty Start Date End Date Pcp, No PCP - General General Medicine 08/12/20
--- OUTSIDE RECORDS SUMMARY | 2025-04-24 11:36 | XMS_ITS | Patient Health Record ---
Author Organization [facility], Address [address] [place] [address] Support Name Relationship Address Phone Richard Blevins Guarantor Unknown [phone] Reason For Referral No Information Plan Of Treatment No Information Insurance Providers Payer Name Payer Address Payer Phone Subscriber Number Group Number Insured Name Patient Relationship to Insured Coverage Start Date Coverage End Date [facility] [address] [place] [address] [id number] Richard Blevins Self - patient is the insured
--- OUTSIDE RECORDS SUMMARY | 2025-04-24 11:36 | XMS_ITS | Encounter Summary ---
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 documented in this encounter Plan of Treatment Upcoming Encounters Date Type Department Care Team (Late st Contact Info) Description 09/07/2025 9:00 AM EDT Office Visit [facility] [address] [place] [address] Megha Day PA-C [address] [address] [email or web address] documented as of this encounter Visit Diagnoses Not on filedocumented in this encounter Care Teams Fiberglass Insulation Installer Relationship Specialty Start Date End Date Jesus Gerardo NP [address] [facility] [address] PCP - General Nurse Practitioner 04/22/25 Megha Day PA-C [address] [place] [phone] jose Physician Population Geneticist Physician Population Geneticist 04/22/25 documented as of this encounter Additional Source Comments The information contained in this document represents components of the legal health record. It is not the complete legal health record.[facility]
--- OUTSIDE RECORDS SUMMARY | 2025-04-24 11:36 | XMS_ITS | Data Portability ---
Author Organization [facility] Address [address] [place] [address] Assessment Encounter Date Assessment Date Assessment LastModified [...] view - 319 cervical 2v 2024 025 [facility] Office, [address] [facility], [facility] [address], [place], [address], 5 15:16:16 Medication Orders None recorded. Patient [...] a4ajBk vP9nXo QUaueC m3YtLR FvZlgJ JJ8mAn HZtai3 [id number] AC0Kla HmEUaG jKiQtr MwF INTERFACE [facility] Office [address], [place], [address], 11/27/2024 11:00:51 11/28/19 25 11/27/2024 XR, cervi azam spine , 2 or 3 view http:/ [email or web address] ?Encry pted=s hAaTro YD8dLq bEUv6g %2BXZw aYqtaq 0bqfl% 2Fg9IQ a4ajBk vP9nXo QUaueC m3YtLR FvZlgJ JJ8mAn HZtai3 6g6212 AC0Kla HmEUaG jKiQtr MwF INTERFACE [facility] [address], [place], [address], 11/27/2024 11:00:53 Result Notes Documentation Provider Name and Address Organization Details Recorded Time Xr, Cervical Spine, 2 Or 3 View : [email or web address]? Encrypted=edDpOraSA4uLmzP Uv6g%4NZQsfUbpjj2akxs%2Fg 2TXk8pdDzlC8eGjJGsicXt8So YVDbRznZKR1hWjLIofw25r623 7EK2NfmOkOQqGlAxYajReS Not Available [facility] 11/27/2024 11:00: 52 Xr, Cervical Spine, 2 Or 3 View : [email or web address]? Encrypted=kmBdTqdTE3iSscS Uv6g%8YXLwqRogzc1ctqe%2Fg 1VXf2gyOgmY8oDmWMwqqTd1Wi ZSNwCenVRY5dIbXDmui74k503 2KM9SduAhUYaCqIxWxwGfV Not Available [facility] 11/27/2024 11:00: 53 Medical Equipment None Reported. [...] Updated DateTime 11/27/2024 170.18 cm 21.9 kg/m2 30876.93 g Susan mora [place] - [facility] 11/27/2024 10:57:18 Social History None recorded. Functional Status None recorded. Mental Status None recorded. Family History Nothing Reported. Medical History No medical history recorded. Gynecological HistoryNo gynecological history recorded. Obstetrics History GPAL:G 0 P 0 0 0 0 Past Encounters Encounter ID Performer Location Encounter Start Date Encounter Closed Date Diagnosis/Indication Diagnosis SNOMED-CT Code Diagnosis ICD10 Code Diagnosis IMO Codes Diagnosis Note [id number] Harsh Huitron MD [facility] [place] [address] [place] [address] 11/27/2024 10:19:33 12/09/2024 15:16:16 Neck pain 72238920 M54.2 [address] Health Concerns Section Related Observation LastModified by Organization Detai ls LastModified Time None Recorded Concern Status LastModified by Organization Details LastModified Time None Recorded Advance Directives Directive None Recorded Payers Insurance Date Sequence Insurance Name Policy Number Policy Gibbs Covered Member ID Gibbs Member ID Guarantor Name 12/09/2024 1 JARETT (PPO) [id number] Richard Blevins [id number] Richard Blevins Notes Date Note Type [...] Huitron MD [address], [place], [address], [facility] 11/27/2024 12:22:17 OBGyn Episode No OBEpisode recorded.
== END 2025-04-24 11:34 | disposition home or self-care (01) ==
LOC: HO.MRI 11:33
PROVIDERS: PCP Nurse Practitioner Family; Visit Provider Nurse Practitioner Family
DX: G43.909 Migraine, unspecified, not intractable, without status migrainosus (principal); Z84.89 Family history of other specified conditions
CPT/HCPCS: 70551